=== PATIENT | male | born 1970 | race African-American/Black ===

== ENCOUNTER 2017-04-17 20:21 | Emergency (ER) | payer OTHER ==
[~2017-04-17] VITALS: Ht 175.3 cm; Wt 77.1 kg
--- NOTE | 2017-04-17 21:13 | ER.PDOC ---
General Chief Complaint: Requesting Medical Care Stated Complaint: DIABETIC, R FOOT INFECTION TRAVEL OUT OF US: No Time seen by MD: 21:13 Source: patient Exam Limitations: no limitations, other (47 yo black male (looks to be 58) presents with 1 week of first web space pain. States "got a cut" there, and it got infected. Noncompliant diabetic--only gets metforming from "hospitals as I drive through" (is long-otr truck driver). Has no PCP (ever), no other known complications of NIDDM.) History of Present Illness Timing/Duration: 1 week Associated Symptoms: denies symptoms Allergies: Coded Allergies: No Known Allergies (Unverified , 04/17/17) Past Medical History Medical History: diabetes Family History Significant Family History: hypertension Social History Smoking: non-smoker Review of Systems All Other Systems: Reviewed and Negative Physical Exam General Appearance: Other (disheveled, appears 10-15 years OLDER than stated age. ) Respiratory: no respiratory distress Extremities: Normal Range of Motion, Non-Tender, Other (first R web space with pustule and diffuse erythema/edema of entire forefoot. Decreased sensation of feet noted, ? green fungal infection of both soles noted. Neurovascularly intact, motor intact. 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, No Motor/Sensory Deficits Results/Orders Results/Orders Laboratory Tests Test 04/17/17 21:50 White Blood Count 8.2 10^3/uL (4.5-11.0) Red Blood Count 4.81 10^6/uL (4.50-5.90) Hemoglobin 13.4 g/dL (13.9-16.3) Hematocrit 39.4 % (37.0-53.0) Mean Corpuscular Volume 81.9 fL (78-100) Mean Corpuscular Hemoglobin 27.9 pg (26-34) Mean Corpuscular Hemoglobin Concent 34.0 g/dL (33-37) Red Cell Distribution Width 12.4 % (11.5-14.5) Platelet Count 337 10^3/uL (150-400) Mean Platelet Volume 8.7 fL (7.8-11.0) Neutrophils (%) (Auto) 77.3 % (41.0-85.0) Lymphocytes (%) (Auto) 10.2 % (24.0-44.0) Monocytes (%) (Auto) 11.8 % (5.0-12.0) Neutrophils # (Auto) 6.3 10^3/uL (1.8-7.7) Lymphocytes # (Auto) 0.8 10^3/uL (1.0-4.8) Monocytes # (Auto) 1.0 10^3/uL (0.3-0.8) Absolute Immature Granulocyte (auto 0.01 10^3 u/L (0-2) Eosinophils % 0.5 % (0.0-5.0) Basophils % 0.1 % (0.0-0.2) Basophils # 0.0 10^3/uL (0.0-0.1) Eosinophil Count 0.0 10^3/uL (0.0-0.2) Sodium Level 130 mmol/L (132-145) Potassium Level 3.7 mmol/L (3.6-5.2) Chloride Level 95.0 mmol/L (96-109) Carbon Dioxide Level 25.9 mmol/L (20.0-32) Anion Gap 12.8 Blood Urea Nitrogen 9 mg/dL (7-18) Creatinine 1.11 mg/dL (0.59-1.40) Estimated GFR () 85.2 (>/=60) BUN/Creatinine Ratio 8.0 Glucose Level 268 mg/dL (70-110) Calcium Level 8.5 mg/dL (8.4-10.5) Total Bilirubin 0.5 mg/dL (0.2-1.0) Aspartate Amino Transf (AST/SGOT) 17 U/L (0-35) Alanine Aminotransferase (ALT/SGPT) 20 U/L (12-78) Alkaline Phosphatase 54 U/L (50-136) Total Protein 7.5 g/dL (6.4-8.2) Albumin 3.5 g/dL (3.4-5.0) Globulin 4.0 Percent Immature Gran (Cell Imm) 0.10 % (0.00-0.50) Progress Progress WBC's o.k., glucose mid 200's, so no need for inpatient therapy. However pt has long history of noncompliance so will give 3.375 Zosyn and 1 g IV vancomycin , and then Augmentin 875 BID x 10 days. Departure Time of Disposition: 22:26 Disposition: 01 HOME, SELF-CARE Impression: Primary Impression: Diabetic foot infection Condition: Stable Referrals: PCP,UNKNOWN (PCP) PRIMARY CARE PROVIDER Duration or Time Spent with Pa: 10 JUAN C PRICE MD Apr 17, 2017 21:13
[2017-04-17 22:02] LABS: BASOPHIL % 0.1 % (0.0-0.2); EOSINOPHIL % 0.5 % (0.0-5.0); HEMOGLOBIN 13.4 g/dL (13.9-16.3); LYMPHOCYTES # 0.8 10^3/uL (1.0-4.8); LYMPHOCYTES % 10.2 % (24.0-44.0); MEAN CELL HGB 27.9 pg (26-34); MEAN CORP VOLUME 81.9 fL (78-100); MEAN PLATELET VOLUME 8.7 fL (7.8-11.0); MONOCYTES % 11.8 % (5.0-12.0); NEUTROPHIL # 6.3 10^3/uL (1.8-7.7); NEUTROPHILS % 77.3 % (41.0-85.0); RED CELL DISTRIBUTION WIDTH 12.4 % (11.5-14.5); WHITE BLOOD CELL 8.2 10^3/uL (4.5-11.0)
[2017-04-17 22:16] LABS: CALCIUM 8.5 mg/dL (8.4-10.5); CARBON DIOXIDE 25.9 mmol/L (20.0-32)
[2017-04-17] MEDS ORDERED: ZOSYN 3.375 GRAM VIAL IV ONE (22:29)
[2017-04-17] MEDS ORDERED: NS IV ONE (22:29)
[2017-04-17] MEDS ORDERED: VANCOMYCIN HCL 1 GM ONE (22:30)
[2017-04-17] MEDS ORDERED: ZOSYN 3.375 GRAM VIAL 3.375 GM in NS 100ML 100 ML IV SCH (22:30)
[2017-04-17] MEDS ORDERED: VANCOMYCIN 1,000 MG in NS 100ML 100 ML IV ONE (22:30)
--- NOTE | 2017-04-17 23:02 | NUR ---
IV 22G IN LEFT FORE ARM, 1 ATTEMPT, FOR IV ANTIBIOTIC ADMINISTRATION. 22G IN RIGHT AC, 1 ATTEMPT FOR IV ANTIOBIOTIC ADMINISTRATION.
[2017-04-18 00:47] VITALS: BP 155/61
--- NOTE | 2017-04-18 00:47 | NUR ---
iv dc'd iv left forearm dc'd catheter intact iv right Ac dc'd catheter intact
== END 2017-04-18 00:48 | disposition home or self-care (01) ==
LOC: ER 20:21
DX: E11.628 Type 2 diabetes mellitus with other skin complications (principal); L08.89 Other specified local infections of the skin and subcutaneous tissue
CPT/HCPCS: 36415; 80053; 85025; 87040 ×2; 96365; 96368; 99285; J2543; J7050 ×2; J3370